=== PATIENT | male | born 1945 | race Caucasian/White ===

== ENCOUNTER 2017-04-17 09:52 | Emergency (ER) | payer MEDICARE ==
[2017-04-17 09:52] VITALS: BMI 23.6
[2017-04-17 10:02] VITALS: RESP 16; O2SAT 100
[2017-04-17 10:39] LABS: URINE BILIRUBIN NEGATIVE (NEGATIVE); URINE BLOOD NEGATIVE (NEGATIVE); URINE COLOR Straw (YELLOW); URINE GLUCOSE (UA) NORMAL (Normal); URINE KETONE NEGATIVE (NEGATIVE); URINE LEUKOCYTE ESTERASE NEG Leu/uL (Negative); URINE PROTEIN NEGATIVE (NEGATIVE); URINE UROBILINOGEN NORMAL mg/dL (0.2-1.0); WBC URINE < 1 /hpf (0-5)
[2017-04-17] MEDS ORDERED: Iohexol 240 (50 ml) PO STA (11:26)
[2017-04-17] MEDS ORDERED: Sodium Chloride 0.9% 1,000 ML IV ONE (11:26)
[2017-04-17 12:04] LABS: BASO % 0.7 % (0.0-2.0); EOS # 0.2 K/uL (0.0-0.7); EOS % 2.6 % (0.0-4.0); LYMPH # 1.7 K/uL (1.0-4.3); LYMPH % 26.4 % (20.0-40.0); MEAN CELL VOLUME 90.1 fL (80.0-94.0); MEAN CORPUSCULAR HEMOGLOBIN 30.1 pg (27.0-31.0); MEAN CORPUSCULAR HGB CONC 33.4 g/dL (33.0-37.0); MEAN PLATELET VOLUME 12.6 fL (7.2-11.7); MONO # 0.4 K/uL (0.0-0.8); MONO % 6.3 % (0.0-10.0); NRBC % 0.1 % (0.0-2.0); RED CELL DISTRIBUTION WIDTH 13.1 % (11.5-14.5); WHITE BLOOD COUNT 6.6 K/uL (4.8-10.8)
[2017-04-17] MEDS ORDERED: Iohexol 240 (50 ml) ONE (12:05)
[2017-04-17 12:15] LABS: CHLORIDE 101 mmol/L (98-107); POTASSIUM 4.5 mmol/L (3.6-5.2); SODIUM 138 mmol/L (132-148)
[2017-04-17 12:18] LABS: ALB/GLOB RATIO 1.1 (1.0-2.1); ALKALINE PHOSPHATASE 73 U/L (38-126); ALT/SGPT 51 U/L (21-72); AST/SGOT 29 U/L (17-59); BILIRUBIN,TOTAL 0.6 mg/dL (0.2-1.3); BLOOD UREA NITROGEN 13 mg/dL (9-20); CALCIUM 9.5 mg/dl (8.6-10.4); CARBON DIOXIDE 29 mmol/L (22-30); GFR AFRICAN-AMERICAN > 60; GLUCOSE,RANDOM 84 mg/dL (75-110); TOTAL PROTEIN 8.1 g/dL (6.3-8.3)
--- NOTE | 2017-04-17 12:40 | C.PDOC ---
History Of Present Illness Patient is a 71 y/o male who presents to the ED with a complaint of abdominal pain associated with diarrhea for the last 10 days. Patient denies vomiting or fever. Patient was seen by PMD and GI; GI prescribed medication, which the patient did not fill, and instructed the patient to schedule an endoscope. (-)hematochezia Time Seen by Provider: 04/17/17 10:50 Chief Complaint (Nursing): Abdominal Pain History Per: Patient History/Exam Limitations: no limitations Onset/Duration Of Symptoms: Days (symptoms present for the last 10 days. ) Current Symptoms Are (Timing): Still Present Location Of Pain/Discomfort: Diffuse Associated Symptoms: Diarrhea. denies: Fever, Vomiting Recent travel outside of the [place]: No Additional History Per: Patient Past Medical History Reviewed: Historical Data, Nursing Documentation, Vital Signs Vital Signs: Last Vital Signs Temp 97.4 F L 04/17/17 15:34 Pulse 68 04/17/17 15:34 Resp 16 04/17/17 15:34 BP 115/69 04/17/17 15:34 Pulse Ox 100 04/17/17 15:40 - Medical History PMH: Depression, Gastritis, Gall Bladder Disease, HTN, Hyperlipidemia, Osteoporosis Denies: Chronic Kidney Disease Surgical History: Cholecystectomy, Endoscopy - [facility] Procedures ANESTH INJEC PERIPH NERV (11/23/13) DESTRUC-SHOULDER LES NEC (11/23/13) ENDO RECTUM POLYPECTOMY (10/25/14) EXCISION INTERVERT DISC (01/17/13) FUSION/REFUS OF 2-3 VERTEBRAE (01/17/13) INSERTION OF INTERBODY SPINAL FUSION DEVICE (01/17/13) OTH CERVICAL FUSION OF ANTERIOR COLUMN, ANTERIOR TECHNIQUE (01/17/13) ROTATOR CUFF REPAIR (11/23/13) Family History: States: No Known Family Hx - Social History Hx Alcohol Use: No Hx Substance Use: No - Immunization History Hx Tetanus Toxoid Vaccination: No Hx Influenza Vaccination: Yes Hx Pneumococcal Vaccination: No Review Of Systems Constitutional: Negative for: Fever Gastrointestinal: Positive for: Abdominal Pain (x10 days), Diarrhea. Negative for: Vomiting Physical Exam - Physical Exam Appears: Well, Non-toxic, No Acute Distress Skin: Normal Color, Warm, Dry Head: Atraumatic, Normacephalic Eye(s): bilateral: Normal Inspection, EOMI Nose: Normal Oral Mucosa: Moist Neck: Normal ROM, Supple Chest: Symmetrical Cardiovascular: Rhythm Regular, No Murmur Respiratory: Normal Breath Sounds, No Accessory Muscle Use, Other (speaking in full sentences) Gastrointestinal/Abdominal: Soft, Tenderness (R sided tenderness) Back: No CVA Tenderness, No Vertebral Tenderness Neurological/Psych: Oriented x3, Normal Speech, Other (no focal deficits) ED Course And Treatment - Laboratory Results Result Diagrams: 04/17/17 11:57 04/17/17 11:57 O2 Sat by Pulse Oximetry: 100 - CT Scan/US Abd/Pelvis Other Rad Studies (CT/US): Interpreted By Me, Read By Radiologist CT/US Interpretation: IMPRESSION: No acute intra abdominal pathology. Status post cholecystectomy. Mild fatty hepatic infiltration. Enlarged prostate gland with prostatic calcifications. Findings likely due to BPH however correlation with PSA recommended to exclude the possibility of prostatic carcinoma. Progress Note: Plan: Omnipaque, Toradol, and IV fluids administered. Abd/Pelvis CT ordered. On re-evaluation, abdominal pain has resolved. Abdomen soft, non tender. Tolerating PO. Discussed with pt results of CT. Pt notes he has a h/o of enlarged prostate. Copy of CT given and instructed strict follow up with urology and GI. Instructed to return to ER if symptoms persist or worsen. Glass Processing Worker used to ensure understanding. Disposition - Disposition Disposition: HOME/ ROUTINE Disposition Time: 15:33 Condition: STABLE Additional Instructions: FOllow up with your GI docotor. REturn to ER if symptoms persist or worsen. Instructions: Acute Abdominal Pain (ED) Forms: [facility] (Syriac) Print Language: SENEGALESE - Clinical Impression Clinical Impression: Abdominal pain - Scribe Statement The provider has reviewed the documentation as recorded by the Scriburban Mendoza All medical record entries made by the Inocencioiburban were at my direction and personally dictated by me. I have reviewed the chart and agree that the record accurately reflects my personal performance of the history, physical exam, medical decision making, and the department course for this patient. I have also personally directed, reviewed, and agree with the discharge instructions and disposition.
[2017-04-17] MEDS ORDERED: Iodixanol 320 MG/ML 100 ML BOTTLE IV ONE (14:06)
--- NOTE | 2017-04-17 15:23 | CT ---
PROCEDURE: CT Abdomen and Pelvis with Oral contrast. HISTORY: abd pain COMPARISON: No prior studies available comparison. TECHNIQUE: Contiguous axial images of the abdomen pelvis performed following oral and intravenous injection of approximately 100 cc Visipaque 320 contrast material. . Coronal and Sagittal reformats generated. This CT exam was performed using one or more of the following dose reduction techniques: Automated exposure control, adjustment of the mA and/or kV according to patient size, and/or use of iterative reconstruction technique. Total exam DLP = 356.27 mGy-cm. FINDINGS: LOWER THORAX: Lung bases clear. No infiltrate effusion or basilar pneumothorax. Small hiatal hernia with slight wall thickening of the distal esophagus likely due to protrusion gastric mucosa. Esophagitis or other intrinsic - invasive wall lesion cannot be excluded. Heart size is borderline/mildly enlarged. No significant pericardial effusion. LIVER: Liver exhibits normal size measuring approximately 11 cm in CC dimension. Mild diffuse fatty hepatic infiltration. No obvious hepatic mass or collection. Portal and splenic veins are opacified. GALLBLADDER AND BILE DUCTS: Gallbladder has been surgically removed with metallic clips in the gallbladder fossa. PANCREAS: Unremarkable. No mass. No ductal dilatation. SPLEEN: Unremarkable. No splenomegaly. ADRENALS: No adrenal lesions. KIDNEYS AND URETERS: Kidneys demonstrate symmetric nephrograms. No evidence of nephrolithiasis or hydronephrosis. BLADDER: Urinary bladder incompletely distended which may account for slight thick-walled appearance. Muscular hypertrophy may contribute. Rule out cystitis. . REPRODUCTIVE: The the prostate appears mildly enlarged with prostatic calcifications. Findings likely due to BPH however correlation with PSA recommended to exclude prostate carcinoma. APPENDIX: Normal-appearing appendix. BOWEL: Evaluation of the bowel slightly limited due to incomplete opacification. Stomach is distended with liquid contrast material and air. Visualized loops of small bowel exhibit relatively normal contour and caliber. No evidence of acute mechanical small bowel obstruction with oral contrast material extending into the colon to the level of the and rectosigmoid. There may be a few scattered colonic diverticula along the sigmoid colon however no evidence to suggest acute diverticulitis. No definitive evidence of abnormal mural wall thickening. PERITONEUM: Unremarkable. No fluid collection. No free air. LYMPH NODES: Unremarkable. No enlarged lymph nodes. VASCULATURE: Unremarkable. No aortic aneurysm. BONES: Mild multilevel degenerative spondylosis of the lower thoracic and lumbar spine. There are no acute compression fractures no retropulsed fragments. OTHER FINDINGS: None. IMPRESSION: No acute intra abdominal pathology. Status post cholecystectomy. Mild fatty hepatic infiltration. Enlarged prostate gland with prostatic calcifications. Findings likely due to BPH however correlation with PSA recommended to exclude the possibility of prostatic carcinoma. See above discussion for additional details and findings.
[2017-04-17 15:35] VITALS: BP 115/69; PULSE 68; TEMP 97.4
== END 2017-04-17 15:51 | disposition home or self-care (01) ==
LOC: C.ER 09:52
DX: R10.9 Unspecified abdominal pain (principal); E78.5 Hyperlipidemia, unspecified; I10 Essential (primary) hypertension; M81.0 Age-related osteoporosis without current pathological fracture; Z90.49 Acquired absence of other specified parts of digestive tract
CPT/HCPCS: 74177; 80053; 81001; 83690; 85025; 96361; 96374; 99284; J1885; J7040; Q9966; Q9967

== ENCOUNTER 2017-06-10 19:01 | Emergency (ER) | payer MEDICARE ==
[2017-06-10 19:01] VITALS: BMI 23.6
[2017-06-10] MEDS ORDERED: Sodium Chloride 0.9% 500 ML IV ONE (20:09)
--- NOTE | 2017-06-10 20:25 | C.PDOC ---
History Of Present Illness 72 year old male with Hx of HLD presents to the ED c/o abdominal pain along with vomit and diarrhea for 3 days. Patient reports he has not been able to tolerate PO as well. Patient denies fever, chills, back pain, dysuria, hematuria. Time Seen by Provider: 06/10/17 20:04 Chief Complaint (Nursing): Abdominal Pain History Per: Patient History/Exam Limitations: no limitations Onset/Duration Of Symptoms: Days Current Symptoms Are (Timing): Still Present Location Of Pain/Discomfort: Diffuse Radiation Of Pain To:: None Quality Of Discomfort: "Pain" Associated Symptoms: Vomiting, Diarrhea, Loss Of Appetite Recent travel outside of the [place]: No Additional History Per: Patient Past Medical History Reviewed: Historical Data, Nursing Documentation, Vital Signs Vital Signs: Last Vital Signs Temp 98.2 F 06/10/17 22:55 Pulse 67 06/10/17 22:55 Resp 16 06/10/17 22:55 BP 150/86 06/10/17 22:55 Pulse Ox 96 06/10/17 22:55 - Medical History PMH: Arthritis, Depression, Gastritis, Gall Bladder Disease, HTN, Hypercholesterolemia, Hyperlipidemia, Osteoporosis Denies: Chronic Kidney Disease Surgical History: Cholecystectomy, Endoscopy - [facility] Procedures ANESTH INJEC PERIPH NERV (11/23/13) DESTRUC-SHOULDER LES NEC (11/23/13) ENDO RECTUM POLYPECTOMY (10/25/14) EXCISION INTERVERT DISC (01/17/13) FUSION/REFUS OF 2-3 VERTEBRAE (01/17/13) INSERTION OF INTERBODY SPINAL FUSION DEVICE (01/17/13) OTH CERVICAL FUSION OF ANTERIOR COLUMN, ANTERIOR TECHNIQUE (01/17/13) ROTATOR CUFF REPAIR (11/23/13) Family History: States: Unknown Family Hx - Social History Hx Alcohol Use: Yes Hx Substance Use: No - Immunization History Hx Tetanus Toxoid Vaccination: No Hx Influenza Vaccination: Yes Hx Pneumococcal Vaccination: No Review Of Systems Constitutional: Negative for: Fever, Chills Cardiovascular: Negative for: Chest Pain, Palpitations Respiratory: Negative for: Cough, Shortness of Breath Gastrointestinal: Positive for: Vomiting, Abdominal Pain, Diarrhea. Negative for: Nausea Skin: Negative for: Rash Neurological: Negative for: Weakness, Numbness Physical Exam - Physical Exam Appears: Non-toxic, No Acute Distress Skin: Normal Color, Warm, Dry Head: Atraumatic, Normacephalic Nose: No Discharge Oral Mucosa: Moist Neck: Normal ROM, Supple Chest: Symmetrical Cardiovascular: Rhythm Regular, No Murmur Respiratory: Normal Breath Sounds, No Rales, No Rhonchi, No Wheezing Gastrointestinal/Abdominal: Bowel Sounds (decreased), Soft, Tenderness (diffuse) , Distention, No Hernia Extremity: Normal ROM, No Pedal Edema, No Calf Tenderness, No Swelling Neurological/Psych: Oriented x3, Normal Speech, Normal Cognition Gait: Steady ED Course And Treatment - Laboratory Results Result Diagrams: 06/10/17 20:45 06/10/17 20:45 O2 Sat by Pulse Oximetry: 98 (On RA) Pulse Ox Interpretation: Normal Progress Note: abdomen is soft and nontender. Patient feels better. CT report is nonspecific. Medical Decision Making Medical Decision Making: Impression : abdominal pain , vomit, diarrhea Plan: * Blood work * Iv fluids * Obstructive series X-Ray Disposition - Disposition Disposition: HOME/ ROUTINE Disposition Time: 00:40 Condition: STABLE Forms: [facility] (Frisian), Gen Discharge Inst Somali - Clinical Impression Clinical Impression: Abdominal pain, Abdominal colic, Abdominal bloating, Abdominal distension - Scribe Statement The provider has reviewed the documentation as recorded by the Scribe Kennedy Muir All medical record entries made by the Scribe were at my direction and personally dictated by me. I have reviewed the chart and agree that the record accurately reflects my personal performance of the history, physical exam, medical decision making, and the department course for this patient. I have also personally directed, reviewed, and agree with the discharge instructions and disposition.
[2017-06-10 20:55] LABS: BASO % 0.6 % (0.0-2.0); EOS % 0.3 % (0.0-4.0); HEMATOCRIT 44.3 % (35.0-51.0); LYMPH # 1.8 K/uL (1.0-4.3); LYMPH % 20.9 % (20.0-40.0); MEAN CELL VOLUME 89.1 fL (80.0-94.0); MEAN CORPUSCULAR HEMOGLOBIN 29.9 pg (27.0-31.0); MEAN CORPUSCULAR HGB CONC 33.6 g/dL (33.0-37.0); MEAN PLATELET VOLUME 11.9 fL (7.2-11.7); MONO # 0.6 K/uL (0.0-0.8); MONO % 6.9 % (0.0-10.0); RED CELL DISTRIBUTION WIDTH 14.3 % (11.5-14.5); WHITE BLOOD COUNT 8.4 K/uL (4.8-10.8)
[2017-06-10 21:04] LABS: ALB/GLOB RATIO 1.5 (1.0-2.1); ALKALINE PHOSPHATASE 72 U/L (38-126); ALT/SGPT 62 U/L (21-72); AMYLASE 133 U/L (30-110); AST/SGOT 50 U/L (17-59); BILIRUBIN,TOTAL 1.7 mg/dL (0.2-1.3); BLOOD UREA NITROGEN 12 mg/dL (9-20); CALCIUM 8.6 mg/dl (8.6-10.4); CARBON DIOXIDE 30 mmol/L (22-30); CHLORIDE 100 mmol/L (98-107); GFR AFRICAN-AMERICAN > 60; GLUCOSE,RANDOM 114 mg/dL (75-110); POTASSIUM 4.7 mmol/L (3.6-5.2); SODIUM 136 mmol/L (132-148); TOTAL PROTEIN 6.7 g/dL (6.3-8.3)
[2017-06-10] MEDS ORDERED: Iohexol 240 (50 ml) ONE (21:59)
[2017-06-10] MEDS ORDERED: Iohexol 240 (50 ml) PO ONE (22:10)
[2017-06-10] MEDS ORDERED: Iohexol 300 100 ML IJ ONE (22:33)
--- NOTE | 2017-06-11 00:25 | CT ---
EXAM: CT Abdomen and Pelvis With Intravenous Contrast EXAM DATE/TIME: 06/10/2017 9:41 PM CLINICAL HISTORY: 72 years old, male; Pain; Abdominal pain; Patient HX: 10--; Additional info: Epigastric pain TECHNIQUE: Axial computed tomography images of the abdomen and pelvis with intravenous contrast. All CT scans at this facility use one or more dose reduction techniques, viz.: automated exposure control; ma/kV adjustment per patient size (including targeted exams where dose is matched to indication; i.e. head); or iterative reconstruction technique. Coronal and sagittal reformatted images were created and reviewed. CONTRAST: 100 mL of [id number] administered intravenously. COMPARISON: Prior images are not available for review. FINDINGS: Lower thorax: Heart size is normal. There is dense contrast in a collateral vessel adjacent to the heart on the left suggesting persistent left superior vena cava. There is a hiatal hernia. There are bilateral pleural effusions. There is prominence of interstitial markings bilaterally. There are groundglass opacities at the lung bases. ABDOMEN: Liver: There is fatty infiltration of the liver. Gallbladder and bile ducts: Gallbladder is absent.Common duct is unremarkable. Pancreas: Pancreas is mildly atrophic. Spleen: unremarkable Adrenals: unremarkable Kidneys and ureters: unremarkable Stomach and bowel: Stomach is incompletely distended. Rotation is normal. There is no small bowel obstruction. Ileocecal unremarkable. Appendix and terminal ileum are unremarkable. Colon is incompletely distended which limits evaluation.There is diverticulosis. Appendix: See stomach and bowel PELVIS: Bladder: unremarkable Reproductive: Prostate is mildly enlarged.Seminal vesicles have the expected configuration. ABDOMEN and PELVIS: Intraperitoneal space: There is trace free fluid in the pelvis. There is no free air. Bones/joints: There are degenerative changes in the osseus structures. Soft tissues: There is a small fat containing umbilical hernia. Vasculature: There are vascular calcifications. Lymph nodes: There is no pathologic adenopathy. IMPRESSION: Bilateral pleural effusion with bibasilar groundglass opacity atelectasis and/or infiltrate; prior cholecystectomy no ductal dilatation; no acute solid visceral abnormality; no CT findings of appendicitis or diverticulitis; trace fluid in the pelvis, unknown etiology Additional findings as described above.
[2017-06-11 00:40] VITALS: BP 138/77; PULSE 68; RESP 18; TEMP 97.6; O2SAT 95
--- NOTE | 2017-06-11 10:25 | RAD ---
PROCEDURE: Radiographs of the chest and abdomen (obstructive series) HISTORY: Abd Pain COMPARISON: No prior. TECHNIQUE: AP radiograph of the chest, with upright and supine radiographs of the abdomen. FINDINGS: CHEST: Lungs: There are chronic fibrotic changes in both lower lobes. There is atelectasis/ scarring in the right mid lung. . Cardiovascular: Normal size heart. No pulmonary vascular congestion. Pleura: No pleural fluid. No pneumothorax. Other findings: None. ABDOMEN AND PELVIS: Bowel: Bowel gas pattern is nonspecific. No evidence of mechanical obstruction. There is a tablet in the distal descending colon. Free air: None. Bones: Unremarkable. Other findings: Surgical clips in the right upper quadrant are related to prior cholecystectomy.. IMPRESSION: Non obstructive bowel gas pattern. Fibrotic changes in both lower lobes of the lungs.
== END 2017-06-11 01:07 | disposition home or self-care (01) ==
LOC: C.ER 19:01
DX: R14.0 Abdominal distension (gaseous) (principal); R10.13 Epigastric pain; E78.00 Pure hypercholesterolemia, unspecified; I10 Essential (primary) hypertension
CPT/HCPCS: 74022; 74177; 80053; 82150; 83605; 83690; 85025; 96372; 99284; J0500; J7040; Q9966; Q9967

== ENCOUNTER 2017-12-03 17:22 | Emergency (ER) | payer MEDICARE, OTHER ==
[2017-12-03 17:22] VITALS: BMI 23.6
[2017-12-03] MEDS ORDERED: Sodium Chloride 0.9% 1,000 ML IV ONE (17:53)
[2017-12-03 18:04] LABS: BASO # 0.1 K/uL (0.0-0.2); BASO % 1.1 % (0.0-2.0); EOS # 0.2 K/uL (0.0-0.7); EOS % 2.2 % (0.0-4.0); HEMOGLOBIN 15.5 g/dL (12.0-18.0); LYMPH # 2.1 K/uL (1.0-4.3); LYMPH % 25.8 % (20.0-40.0); MEAN CELL VOLUME 91.4 fL (80.0-94.0); MEAN CORPUSCULAR HGB CONC 33.9 g/dL (33.0-37.0); MEAN PLATELET VOLUME 10.6 fL (7.2-11.7); MONO # 0.6 K/uL (0.0-0.8); MONO % 7.3 % (0.0-10.0); NEUT # 5.1 K/uL (1.8-7.0); NEUT % 63.6 % (50.0-75.0); NRBC % 0.1 % (0.0-2.0); RBC 5.02 Mil/uL (4.40-5.90); RED CELL DISTRIBUTION WIDTH 14.5 % (11.5-14.5); WHITE BLOOD COUNT 8.1 K/uL (4.8-10.8)
[2017-12-03 18:17] LABS: URINE BILIRUBIN NEGATIVE (NEGATIVE); URINE BLOOD NEGATIVE (NEGATIVE); URINE CLARITY Clear (Clear); URINE COLOR Yellow (YELLOW); URINE GLUCOSE (UA) NORMAL (Normal); URINE LEUKOCYTE ESTERASE NEG Leu/uL (Negative); URINE PROTEIN NEGATIVE (NEGATIVE); URINE UROBILINOGEN NORMAL mg/dL (0.2-1.0)
[2017-12-03 18:20] LABS: ALB/GLOB RATIO 1.3 (1.0-2.1); ALBUMIN 4.1 g/dL (3.5-5.0); ALT/SGPT 24 U/L (21-72); AST/SGOT 33 U/L (17-59); BLOOD UREA NITROGEN 16 mg/dL (9-20); GFR AFRICAN-AMERICAN > 60; GFR NON-AFRICAN AMERICAN > 60; LIPASE 120 U/L (23-300)
[2017-12-03] MEDS ORDERED: Iodixanol 320 MG/ML 100 ML BOTTLE IV ONE (19:14)
--- NOTE | 2017-12-03 20:40 | C.PDOC ---
History Of Present Illness 72 year old male presents to the ED for evaluation of diffuse abdominal pain which began 2 weeks ago. Patient reports decreased appetite, but has been tolerating PO intake. He denies fever, chills, nausea, vomiting, blood in urine/ stool, or dysuria. Chief Complaint (Nursing): Abdominal Pain History Per: Patient History/Exam Limitations: no limitations Onset/Duration Of Symptoms: Other (2 weeks ) Current Symptoms Are (Timing): Still Present Location Of Pain/Discomfort: Diffuse Quality Of Discomfort: "Pain" Associated Symptoms: denies: Fever, Chills, Nausea, Vomiting, Urinary Symptoms Additional History Per: Patient Past Medical History Reviewed: Historical Data, Nursing Documentation, Vital Signs Vital Signs: Last Vital Signs Temp 98.0 F 12/03/17 22:50 Pulse 77 12/03/17 22:50 Resp 18 12/03/17 22:50 BP 156/89 H 12/03/17 22:50 Pulse Ox 97 12/03/17 22:50 - Medical History PMH: Arthritis, Depression, Gastritis, Gall Bladder Disease, HTN, Hypercholesterolemia, Hyperlipidemia, Osteoporosis Denies: Chronic Kidney Disease Surgical History: Cholecystectomy, Endoscopy - [facility] Procedures ANESTH INJEC PERIPH NERV (11/23/13) DESTRUC-SHOULDER LES NEC (11/23/13) ENDO RECTUM POLYPECTOMY (10/25/14) EXCISION INTERVERT DISC (01/17/13) FUSION/REFUS OF 2-3 VERTEBRAE (01/17/13) INSERTION OF INTERBODY SPINAL FUSION DEVICE (01/17/13) OTH CERVICAL FUSION OF ANTERIOR COLUMN, ANTERIOR TECHNIQUE (01/17/13) ROTATOR CUFF REPAIR (11/23/13) Family History: States: Unknown Family Hx - Social History Hx Alcohol Use: Yes Hx Substance Use: No - Immunization History Hx Tetanus Toxoid Vaccination: No Hx Influenza Vaccination: Yes Hx Pneumococcal Vaccination: No Review Of Systems Constitutional: Negative for: Fever, Chills Gastrointestinal: Positive for: Abdominal Pain (diffuse ). Negative for: Nausea , Vomiting Genitourinary: Negative for: Dysuria, Hematuria Physical Exam - Physical Exam Appears: Non-toxic, No Acute Distress Skin: Normal Color, Warm, Dry Head: Atraumatic, Normacephalic Eye(s): bilateral: Normal Inspection Oral Mucosa: Moist Neck: Supple Chest: Symmetrical, No Deformity, No Tenderness Cardiovascular: Rhythm Regular, No Murmur Respiratory: Normal Breath Sounds, No Rales, No Rhonchi, No Wheezing Gastrointestinal/Abdominal: Bowel Sounds, Soft, Tenderness (diffuse ), No Guarding, No Rebound Extremity: Normal ROM, Capillary Refill (less than 2 seconds ) Neurological/Psych: Oriented x3, Normal Speech, Normal Cognition ED Course And Treatment - Laboratory Results Result Diagrams: 12/03/17 18:01 12/03/17 18:01 O2 Sat by Pulse Oximetry: 97 (on RA) Pulse Ox Interpretation: Normal Medical Decision Making Medical Decision Making: Progress: Bloodwork, urinalysis, CT A/P ordered and reviewed. IV Fluids administered. Disposition - Disposition Referrals: [facility] Annette Resendiz, [Non-Staff] - Disposition: HOME/ ROUTINE Disposition Time: 21:30 Condition: GOOD Additional Instructions: ELIZABETH GUNTER, thank you for letting us take care of you today. Your provider was Jordy Hunt DO and you were treated for ABD PAIN. The emergency medical care you received today was directed at your acute symptoms. If you were prescribed any medication, please fill it and take as directed. It may take several days for your symptoms to resolve. Return to the Emergency Department if your symptoms worsen, do not improve, or if you have any other problems. Please contact your doctor or call one of the physicians/clinics you have been referred to that are listed on the Patient Visit Information form that is included in your discharge packet. Bring any paperwork you were given at discharge with you along with any medications you are taking to your follow up visit. Our treatment cannot replace ongoing medical care by a primary care provider outside of the emergency department. Thank you for allowing the [facility] team to be part of your care today. Follow up with your primary doctor in 2-3 days for re-evaluation and further management. ELIZABETH GUNTER, skyler por dejarnos atenderlo hoy. Marquez proveedor fue Jordy Hunt DO y usted fue tratado por ABD PAIN. La atencin mdica de emergencia que recibi hoy estaba dirigida a day sntomas agudos. Si le prescribieron alg n medicamento, llnelo y tome segn las indicaciones. Day sntomas pueden tardar varios verduzco en resolverse. Regrese al Departamento de Emergencia si day s ntomas empeoran, no mejoran o si tiene algn otro problema. Comunquese con marquez mdico o llame a alex de los mdicos / clnicas a los que angel sido referido que figura en el formulario de Informacin de visita del paciente que se incluye en marquez paquete de gregoria. Traiga todos los documentos que recibi al momento del gregoria junto con los medicamentos que est tomando en marquez visita de seguimiento. Nuestro tratamiento no puede reemplazar la atencin mdica en curso por un proveedor de atencin primaria fuera del departamento de emergencia. Skyler por permitir que el equipo de [facility] sea parte de marquez cuidado hoy. Carola un seguimiento con marquez mdico de cabecera en 2-3 verduzco para catherine nueva evaluacin y catherine administracin posterior. Instructions: Acute Abdomen (Belly Pain), Adult (DC) Forms: Gen Discharge Inst Pashto, [employer] (Pashto) Print Language: KYRGYZ - Clinical Impression Clinical Impression: Abdominal pain - Scribe Statement The provider has reviewed the documentation as recorded by the Scribe (Kit Mccoy) Provider Attestation: All medical record entries made by the Scribe were at my direction and personally dictated by me. I have reviewed the chart and agree that the record accurately reflects my personal performance of the history, physical exam, medical decision making, and the department course for this patient. I have also personally directed, reviewed, and agree with the discharge instructions and disposition.
--- NOTE | 2017-12-03 22:06 | CT ---
EXAM: CT Abdomen and Pelvis With Intravenous Contrast CLINICAL HISTORY: 72 years old, male; Pain; Abdominal pain; Generalized; Additional info: Diffuse abdominal pain TECHNIQUE: Axial computed tomography images of the abdomen and pelvis with intravenous contrast. All CT scans at this facility use one or more dose reduction techniques, viz.: automated exposure control; ma/kV adjustment per patient size (including targeted exams where dose is matched to indication; i.e. head); or iterative reconstruction technique. Coronal and sagittal reformatted images were created and reviewed. CONTRAST: 100 mL of visipaque 320 administered intravenously. COMPARISON: CT - ABD PELVIS PO IV CONTRAST 2017-04-17 14:14 FINDINGS: Lung bases: Mild atelectasis/scarring. ABDOMEN: Liver: Fatty infiltration. Gallbladder and bile ducts: Cholecystectomy. No significant ductal dilation. Pancreas: No ductal dilation. No mass. Spleen: No splenomegaly. Adrenals: No mass. Kidneys and ureters: Few too small to characterize lesions within kidneys. No hydronephrosis. Stomach and bowel: No definite mural thickening. No obstruction. PELVIS: Appendix: Normal caliber. No inflammation. Bladder: Unremarkable. Reproductive: Mildly enlarged prostate. Penile calcifications, grossly stable. ABDOMEN and PELVIS: Intraperitoneal space: No significant fluid collection. No free air. Bones/joints: Degenerative changes of spine. No acute fracture. Soft tissues: Minimal gynecomastia. Vasculature: Mild atherosclerotic disease. No aneurysm. Lymph nodes: No pathologically enlarged lymph nodes. IMPRESSION: 1. No definite acute intraabdominal abnormality. 2. Prostate enlargement. Followup as clinically warranted. 3. Incidental/non-acute findings are described above.
[2017-12-03 22:51] VITALS: BP 156/89; PULSE 77; RESP 18; TEMP 98; O2SAT 97
== END 2017-12-03 22:55 | disposition home or self-care (01) ==
LOC: C.ER 17:22
DX: R10.9 Unspecified abdominal pain (principal); I10 Essential (primary) hypertension; E78.00 Pure hypercholesterolemia, unspecified
CPT/HCPCS: 74177; 80053; 81001; 83690; 85025; 87086; 99285; J7030; Q9967

== ENCOUNTER 2018-01-13 06:42 | Day surgery (SDC) | payer MEDICARE ==
[2018-01-13] MEDS ORDERED: Propofol 10 mg/ml Inj (20 ML) ONE (08:05)
--- NOTE | 2018-01-13 08:08 | CP.SDSHP ---
Same Day Surgery H & P - History Proposed Procedure: endoscopy Pre-Op Diagnosis: abdom pain, ulcer - Previous Medical/Surgical History Cardiac: Hypertension - Allergies Allergies: Allergies No Known Allergies Allergy (Verified 01/13/18 07:01) - Physical Exam Vital Signs: Vital Signs 01/13/18 06:55 Temperature 97.7 F Pulse Rate 63 Respiratory 19 Rate Blood Pressure 122/71 O2 Sat by Pulse 97 Oximetry Mental Status: Alert & Oriented x3 Neuro: WNL Heart: WNL Lungs: WNL GI: WNL - {Optional Preform as Required} Abdomen: WNL - Impression Impression: abdom pain, ulcer Pt. Evaluated Today:Candidate for Anesthesia & Procedure: Yes - Date & Time Date: 01/13/18 Time: 08:00 Short Stay Discharge - Short Stay Discharge Admitting Diagnosis/Reason for Visit: GASTRIC ULCER Disposition: HOME/ ROUTINE
[2018-01-13 08:28] VITALS: TEMP 97.9
[2018-01-13 08:41] VITALS: O2SAT 100
[2018-01-13 09:02] VITALS: BP 123/70; PULSE 60; RESP 16
== END 2018-01-13 09:10 | disposition home or self-care (01) ==
LOC: C.ENDO 06:42
PROVIDERS: ATTEND Internal Medicine Gastroenterology
DX: K25.9 Gastric ulcer, unspecified as acute or chronic, without hemorrhage or perforation (principal); K29.70 Gastritis, unspecified, without bleeding
CPT/HCPCS: 43239; 88305; 88312; 88342; J2704

== ENCOUNTER 2018-09-02 08:41 | Inpatient (IN) | payer MEDICARE, OTHER ==
[2018-09-02 08:41] VITALS: BMI 25.0
--- NOTE | 2018-09-02 08:59 | C.PDOC ---
History Of Present Illness 73 y/o male pt with hx of arthritis, HTN and HLD presents to the ER c/o periumbilical abdominal pain that started last night. Associated sx includes dysuria. Pain feels like a throbbing, stabbing pain with no radiation. Pt denies back pain, dark or blood stool, diarrhea, constipation, nausea or vomiting. No fever, chills or night sweats. No fall or trauma. No new medications. Pt has no other associated sx or complaints at this time. Time Seen by Provider: 09/02/18 08:58 Chief Complaint (Nursing): Abdominal Pain History Per: Patient History/Exam Limitations: no limitations Onset/Duration Of Symptoms: Days (x1) Current Symptoms Are (Timing): Still Present Location Of Pain/Discomfort: Periumbilical Past Medical History Reviewed: Historical Data, Nursing Documentation, Vital Signs Vital Signs: Last Vital Signs Temp 97.9 F 09/02/18 08:46 Pulse 86 09/02/18 08:46 Resp 18 09/02/18 08:46 BP 102/68 09/02/18 08:46 Pulse Ox 99 09/02/18 08:46 - Medical History PMH: Arthritis, Depression, Gastritis, Gall Bladder Disease, HTN, Hypercholesterolemia, Hyperlipidemia, Osteoporosis Surgical History: Cholecystectomy, Endoscopy - [facility] Procedures ANESTH INJEC PERIPH NERV (11/23/13) DESTRUC-SHOULDER LES NEC (11/23/13) ENDO RECTUM POLYPECTOMY (10/25/14) EXCISION INTERVERT DISC (01/17/13) FUSION/REFUS OF 2-3 VERTEBRAE (01/17/13) INSERTION OF INTERBODY SPINAL FUSION DEVICE (01/17/13) OTH CERVICAL FUSION OF ANTERIOR COLUMN, ANTERIOR TECHNIQUE (01/17/13) ROTATOR CUFF REPAIR (11/23/13) Family History: States: Unknown Family Hx - Social History Hx Alcohol Use: Yes Hx Substance Use: No - Immunization History Hx Tetanus Toxoid Vaccination: No Hx Influenza Vaccination: Yes Hx Pneumococcal Vaccination: No Review Of Systems Constitutional: Negative for: Fever, Chills, Sweats Eyes: Negative for: Pain, Vision Change, Conjunctivae Inflammation ENT: Negative for: Ear Pain, Ear Discharge, Nose Pain, Nose Congestion, Mouth Pain, Mouth Swelling Cardiovascular: Negative for: Chest Pain, Palpitations, Orthopnea Respiratory: Negative for: Cough, Shortness of Breath Gastrointestinal: Positive for: Abdominal Pain (periumbilical ). Negative for: Nausea, Vomiting, Diarrhea, Melena, Hematochezia Genitourinary: Positive for: Dysuria. Negative for: Frequency, Incontinence Musculoskeletal: Negative for: Back Pain Skin: Negative for: Rash, Lesions Neurological: Negative for: Weakness, Numbness Physical Exam - Physical Exam Appears: Well, Non-toxic, No Acute Distress Skin: Warm, Dry Head: Atraumatic, Normacephalic Eye(s): bilateral: Normal Inspection, PERRL, EOMI Ear(s): Bilateral: Normal Nose: Normal Oral Mucosa: Moist Tongue: Normal Appearing Lips: Normal Appearing Gingiva: Normal Appearing Throat: Normal, No Erythema, No Exudate Neck: Normal, Normal ROM, Trachea Midline, Supple, No Other (meningeal signs; negative kernig's and brudzinski's ) Lymphatic: Normal Exam Chest: Symmetrical Cardiovascular: Rhythm Regular, No Friction Rub Respiratory: Normal Breath Sounds, No Decreased Breath Sounds, No Accessory Muscle Use, No Rales, No Rhonchi, No Stridor, No Wheezing, No Plerual Rub Gastrointestinal/Abdominal: Soft, Tenderness (mild periumbilical pain ), No Distention, No Guarding, No Rebound Back: Normal Inspection, No CVA Tenderness, No Vertebral Tenderness Extremity: Normal ROM, No Tenderness, No Swelling Extremity: Bilateral: Atraumatic, Normal Color And Temperature Pulses: Left Dorsalis Pedis: Normal, Right Dorsalis Pedis: Normal Neurological/Psych: Oriented x3, Normal Speech, Normal Cognition Gait: Steady ED Course And Treatment - Laboratory Results Result Diagrams: 09/02/18 10:01 09/02/18 10:01 O2 Sat by Pulse Oximetry: 99 (RA) Pulse Ox Interpretation: Normal - CT Scan/US Abdominal/Pelvic CT Other Rad Studies (CT/US): Interpreted By Me, Read By Radiologist CT/US Interpretation: Accession No. : [id number]. Patient Name / ID : JANI JOHNSON / [id number]. Exam Date : 09/02/2018 11:31:10 ( Approved ). Study Comment : Sex / Age : M / 73Y. Creator : Ely Anderson. Dictator : Jonas Gerber MD. Bead Preparer : Travel Guide : Jonas Gerber MD. Approver2 : Report Date : 09/02/2018 12:17:33. My Comment : . Date of service: 09/02/2018. PROCEDURE: CT Abdomen and Pelvis with contrast. HISTORY: abd pain. COMPARISON: 12/03/2017. TECHNIQUE: Contrast dose: 100 mL Visipaque 320. Radiation dose: Total exam DLP = 897.53 mGy-cm. This CT exam was performed using one or more of the following dose reduction techniques: Automated exposure control, adjustment of the mA and/or kV according to patient size, and/or use of iterative reconstruction technique. FINDINGS: LOWER THORAX: Very small hiatal hernia. LIVER: Unremarkable. No gross lesion or ductal dilatation. GALLBLADDER AND BILE DUCTS: Status post cholecystectomy. PANCREAS: Unrem arkable. No gross lesion or ductal dilatation. SPLEEN: Unremarkable. ADRENALS: Unremarkable. No mass. KIDNEYS AND URETERS: Unremarkable. No hydronephrosis. No solid mass. VASCULATURE: Unremarkable. No aortic aneurysm. No aortic atherosclerotic calcification or mural plaque present. BOWEL: Multiple mildly dilated loops of small bowel, likely ileus. Cannot entirely rule out early mechanical small bowel obstruction. There is mild mural thickening of loops of jejunum in the central abdomen and left upper quadrant. Consistent with nonspecific enteritis.. APPENDIX: Distended fluid-filled appendix up to approximately 7 mm diameter. Concerning for acute appendicitis. No periappendiceal inflammatory change. No periappendiceal abscess. No free air. PERITONEUM: Unremarkable. No free fluid. No free air. LYMPH NODES: Unremarkable. No enlarged lymph nodes. BLADDER: Poorly distended. No gross abnormality. REPRODUCTIVE: Unremarkable prostate. BONES: No acute fracture. OTHER FINDINGS: None. IMPRESSION: Mildly distended appendix concerning for acute appendicitis. No periappendiceal abscess or free air. Probable mild ileus. Cannot rule out early mechanical small bowel obstruction and follow-up should be considered. Mild nonspecific enteritis. Medical Decision Making Medical Decision Making: Periumbilical pain r/o appendicitis. No dark or bloody stool. Pt notes dysuria. No CVAT or fever, chills or night sweats. No fall or trauma. Pending imaging nad labs to rule out appdx. plans: -- chem labs -- blood work -- EKG -- CT abdomen -- pepcid [address] 1333 imaging w/ possible Appendicits, pt in NAD w/ out leukocytosis paged surgery EK, sinus rhythm with a apc, no stemi. [id number] appreciate consult w/ surgical services asst: likely to be admitted to medicine team, no abx at this time appreciae consult w/ Dr. Gillis (pts pmd does not come to [facility]): accepted under his service. Pt in NAD agreeable to plan Disposition - Disposition Disposition: HOSPITALIZED Disposition Time: 14:44 Condition: GOOD Additional Instructions: ELIZABETH GUNTER, thank you for letting us take care of you today. Your provider was Isidoro Mota and you were treated for STOMACH PAIN. The emergency medical care you received today was directed at your acute symptoms. If you were prescribed any medication, please fill it and take as directed. It may take several days for your symptoms to resolve. Return to the Emergency Department if your symptoms worsen, do not improve, or if you have any other problems. Please contact your doctor or call one of the physicians/clinics you have been referred to that are listed on the Patient Visit Information form that is included in your discharge packet. Bring any paperwork you were given at discharge with you along with any medications you are taking to your follow up visit. Our treatment cannot replace ongoing medical care by a primary care provider outside of the emergency department. Thank you for allowing the [facility] team to be part of your care today. If you had an X-Ray or CT scan: A Radiologist will review the ED reading if any change in treatment is needed we will contact you. If you had a blood, urine, or wound culture: It will take several days for the results, if any change in treatment is needed we will contact you. If you had an STI test: It will take 48 hours for the results. Please call after 1 week if you have not heard back. Forms: [employer] (Welsh) - Clinical Impression Clinical Impression: Acute appendicitis - Scribe Statement The provider has reviewed the documentation as recorded by the Kenji Gilmore Do Provider Attestation: All medical record entries made by the Kenji were at my direction and personally dictated by me. I have reviewed the chart and agree that the record accurately reflects my personal performance of the history, physical exam, medical decision making, and the department course for this patient. I have also personally directed, reviewed, and agree with the discharge instructions and disposition.
[2018-09-02 10:12] LABS: BASO % 0.5 % (0.0-2.0); EOS % 0.1 % (0.0-4.0); LYMPH # 0.4 K/uL (1.0-4.3); LYMPH % 3.9 % (20.0-40.0); MEAN CELL VOLUME 90.8 fL (80.0-94.0); MEAN CORPUSCULAR HEMOGLOBIN 29.9 pg (27.0-31.0); MEAN PLATELET VOLUME 11.5 fL (7.2-11.7); MONO # 0.3 K/uL (0.0-0.8); MONO % 2.9 % (0.0-10.0); NEUT # 8.6 K/uL (1.8-7.0); NEUT % 92.6 % (50.0-75.0); PLATELET COUNT 149 K/uL (130-400); RBC 5.02 Mil/uL (4.40-5.90); RED CELL DISTRIBUTION WIDTH 13.6 % (11.5-14.5); WHITE BLOOD COUNT 9.3 K/uL (4.8-10.8)
[2018-09-02 10:18] LABS: SQUAMOUS EPITHIAL 1 /hpf (0-5); URINE BACTERIA RARE (<OCC); URINE BILIRUBIN NEGATIVE (NEGATIVE); URINE BLOOD NEGATIVE (NEGATIVE); URINE CLARITY Hazy (Clear); URINE COLOR Amber (YELLOW); URINE GLUCOSE (UA) NORMAL (Normal); URINE LEUKOCYTE ESTERASE NEG Leu/uL (Negative); URINE PROTEIN 1+ mg/dL (NEGATIVE); URINE UROBILINOGEN NORMAL mg/dL (0.2-1.0)
[2018-09-02 10:20] LABS: VENOUS BLOOD GAS BASE EXCESS 0.8 mmol/L (0.0-2.0); VENOUS BLOOD GAS PCO2 56 mmHg (40-60); VENOUS BLOOD GAS PO2 21 mm/Hg (30-55); VENOUS BLOOD PH 7.31 (7.32-7.43)
[2018-09-02 10:22] LABS: ALB/GLOB RATIO 1.7 (1.0-2.1); ALBUMIN 4.1 g/dL (3.5-5.0); ALT/SGPT 32 U/L (21-72); AST/SGOT 41 U/L (17-59); BLOOD UREA NITROGEN 32 mg/dL (9-20); CALCIUM 8.3 mg/dl (8.6-10.4); GFR NON-AFRICAN AMERICAN > 60; LIPASE 59 U/L (23-300)
[2018-09-02 10:43] LABS: BANDS 3 % (0-2); LYMPHOCYTE 4 % (20-40); MONOCYTE 2 % (0-10); NEUTROPHIL 91 % (50-75); TOTAL CELLS COUNTED 100
[2018-09-02] MEDS ORDERED: Iodixanol 320 MG/ML 100 ML BOTTLE IV ONE (10:43)
[2018-09-02 10:49] LABS: PLATELET ESTIMATE NORMAL (NORMAL)
--- NOTE | 2018-09-02 13:22 | CT ---
Date of service: 09/02/2018 PROCEDURE: CT Abdomen and Pelvis with contrast HISTORY: abd pain COMPARISON: 12/03/2017 TECHNIQUE: Contrast dose: 100 mL Visipaque 320 Radiation dose: Total exam DLP = 897.53 mGy-cm. This CT exam was performed using one or more of the following dose reduction techniques: Automated exposure control, adjustment of the mA and/or kV according to patient size, and/or use of iterative reconstruction technique. FINDINGS: LOWER THORAX: Very small hiatal hernia LIVER: Unremarkable. No gross lesion or ductal dilatation. GALLBLADDER AND BILE DUCTS: Status post cholecystectomy PANCREAS: Unremarkable. No gross lesion or ductal dilatation. SPLEEN: Unremarkable. ADRENALS: Unremarkable. No mass. KIDNEYS AND URETERS: Unremarkable. No hydronephrosis. No solid mass. VASCULATURE: Unremarkable. No aortic aneurysm. No aortic atherosclerotic calcification or mural plaque present. BOWEL: Multiple mildly dilated loops of small bowel, likely ileus. Cannot entirely rule out early mechanical small bowel obstruction. There is mild mural thickening of loops of jejunum in the central abdomen and left upper quadrant. Consistent with nonspecific enteritis.. APPENDIX: Distended fluid-filled appendix up to approximately 7 mm diameter. Concerning for acute appendicitis. No periappendiceal inflammatory change. No periappendiceal abscess. No free air. PERITONEUM: Unremarkable. No free fluid. No free air. LYMPH NODES: Unremarkable. No enlarged lymph nodes. BLADDER: Poorly distended. No gross abnormality. REPRODUCTIVE: Unremarkable prostate. BONES: No acute fracture. OTHER FINDINGS: None. IMPRESSION: Mildly distended appendix concerning for acute appendicitis. No periappendiceal abscess or free air. Probable mild ileus. Cannot rule out early mechanical small bowel obstruction and follow-up should be considered. Mild nonspecific enteritis.
--- NOTE | 2018-09-02 15:46 | CP.PCM.CON ---
History of Present Illness - History of Present Illness History of Present Illness: SURGERY NOTE FOR DR. GALARZA Reason: r/p appy, abdominal pain 73M presents to hospital for abdominal pain. Patient states pain is diffuse and is mainly in the lower abdominal. Patient states pain started recently. He denies nausea, vomiting, and denies diarrhea and constipation. Denies fevers. PSH: lap cholecystectomy Social: Denies alcohol, illicit drugs use Allergies: NKDA Past Patient History - Infectious Disease Hx of Infectious Diseases: None - Past Medical History & Family History Past Medical History?: Yes - Past Social History Smoking Status: Never Smoked - CARDIAC Hx Hypercholesterolemia: Yes Hx Hypertension: Yes - PULMONARY Hx Respiratory Disorders: No - NEUROLOGICAL Hx Neurological Disorder: No - HEENT Hx HEENT Problems: No - RENAL Hx Chronic Kidney Disease: No - ENDOCRINE/METABOLIC Hx Endocrine Disorders: No - HEMATOLOGICAL/ONCOLOGICAL Hx Blood Disorders: No - INTEGUMENTARY Hx Dermatological Problems: No - MUSCULOSKELETAL/RHEUMATOLOGICAL Hx Arthritis: Yes Hx Osteoporosis: Yes - GASTROINTESTINAL Hx Gall Bladder Disease: Yes Hx Gastritis: Yes - GENITOURINARY/GYNECOLOGICAL Hx Genitourinary Disorders: No - PSYCHIATRIC Hx Depression: Yes Hx Substance Use: No - SURGICAL HISTORY Hx Cholecystectomy: Yes - ANESTHESIA Hx Anesthesia: Yes Hx Anesthesia Reactions: No Hx Malignant Hyperthermia: No Meds Allergies/Adverse Reactions: Allergies Allergy/AdvReac Type Severity Reaction Status Date / Time No Known Allergies Allergy Verified 01/26/18 10:46 Physical Exam - Constitutional Appears: Non-toxic, No Acute Distress Additional comments: uncomfortable due to pain - Respiratory Exam Respiratory Exam: Clear to Auscultation Bilateral, NORMAL BREATHING PATTERN - Cardiovascular Exam Cardiovascular Exam: REGULAR RHYTHM, +S1, +S2 - GI/Abdominal Exam GI & Abdominal Exam: Soft, Tenderness. absent: Distended, Firm, Guarding, Rebound, Rigid - Extremities Exam Extremities exam: Negative for: pedal edema, tenderness - Neurological Exam Neurological exam: Alert, Oriented x3 - Psychiatric Exam Psychiatric exam: Normal Affect, Normal Mood - Skin Skin Exam: Dry, Intact, Normal Color, Warm Results - Vital Signs Recent Vital Signs: Last Vital Signs Temp 98.9 F 09/02/18 15:13 Pulse 96 H 09/02/18 15:13 Resp 18 09/02/18 15:13 BP 108/69 09/02/18 15:13 Pulse Ox 98 09/02/18 15:13 - Labs Result Diagrams: 09/02/18 10:01 09/02/18 10:01 Labs: Laboratory Results - last 24 hr 09/02/18 09/02/18 09/02/18 10:01 10:01 10:11 WBC 9.3 RBC 5.02 Hgb 15.0 Hct 45.6 MCV 90.8 MCH 29.9 MCHC 33.0 RDW 13.6 Plt Count 149 MPV 11.5 Neut % (Auto) 92.6 H Lymph % (Auto) 3.9 L [place] % (Auto) 2.9 Eos % (Auto) 0.1 Baso % (Auto) 0.5 Neut # (Auto) 8.6 H Lymph # (Auto) 0.4 L [place] # (Auto) 0.3 Eos # (Auto) 0.0 Baso # (Auto) 0.0 Neutrophils % (Manual) 91 H Band Neutrophils % 3 H Lymphocytes % (Manual) 4 L Monocytes % (Manual) 2 Platelet Estimate Normal RBC Morphology Normal pO2 21 L VBG pH 7.31 L VBG pCO2 56 VBG HCO3 23.7 VBG Total CO2 29.9 H VBG O2 Sat (Calc) 38.6 L VBG Base Excess 0.8 VBG Potassium 3.7 Glucose 88 Lactate 0.8 Sodium 135 140.0 Potassium 4.0 Chloride 101 104.0 Carbon Dioxide 27 Anion Gap 11 BUN 32 H Creatinine 0.7 L Est GFR ( Amer) > 60 Est GFR (Non-Af Amer) > 60 Random Glucose 96 Calcium 8.3 L Magnesium 1.8 Total Bilirubin 0.8 AST 41 ALT 32 Alkaline Phosphatase 73 Troponin I < 0.0120 Total Protein 6.4 Albumin 4.1 Globulin 2.4 Albumin/Globulin Ratio 1.7 Lipase 59 Venous Blood Potassium 3.7 Urine Color Urine Clarity Urine pH Ur Specific [place] Urine Protein Urine Glucose (UA) Urine Ketones Urine Blood Urine Nitrate Urine Bilirubin Urine Urobilinogen Ur Leukocyte Esterase Urine WBC (Auto) Urine RBC (Auto) Ur Squamous Epith Cells Urine Bacteria Hyaline Casts 09/02/18 10:11 WBC RBC Hgb Hct MCV MCH MCHC RDW Plt Count MPV Neut % (Auto) Lymph % (Auto) [place] % (Auto) Eos % (Auto) Baso % (Auto) Neut # (Auto) Lymph # (Auto) [place] # (Auto) Eos # (Auto) Baso # (Auto) Neutrophils % (Manual) Band Neutrophils % Lymphocytes % (Manual) Monocytes % (Manual) Platelet Estimate RBC Morphology pO2 VBG pH VBG pCO2 VBG HCO3 VBG Total CO2 VBG O2 Sat (Calc) VBG Base Excess VBG Potassium Glucose Lactate Sodium Potassium Chloride Carbon Dioxide Anion Gap BUN Creatinine Est GFR ( Amer) Est GFR (Non-Af Amer) Random Glucose Calcium Magnesium Total Bilirubin AST ALT Alkaline Phosphatase Troponin I Total Protein Albumin Globulin Albumin/Globulin Ratio Lipase Venous Blood Potassium Urine Color Radha Urine Clarity Hazy Urine pH 5.0 Ur Specific [place] 1.028 Urine Protein 1+ H Urine Glucose (UA) Normal Urine Ketones Trace Urine Blood Negative Urine Nitrate Negative Urine Bilirubin Negative Urine Urobilinogen Normal Ur Leukocyte Esterase Neg Urine WBC (Auto) 2 Urine RBC (Auto) 1 Ur Squamous Epith Cells 1 Urine Bacteria Rare Hyaline Casts 3-5 H Assessment & Plan - Assessment and Plan (Free Text) Assessment: 73M with enteritis, colitis Plan: - NPO - IVF - Pain control - Anti emetic - IV antibiotics - Serial abdominal exam Further recs discuss with Dr. Rick Kaba, PGY3
[2018-09-02] MEDS ORDERED: HYDROmorphone 1 mg/ml ISec IVP PRN (16:00)
[2018-09-02 16:31] VITALS: RESP 20
[2018-09-02] MEDS: Dextrose 5%/Lactated Ringer's 1,000 ML IV SCH (16:38)
[2018-09-02] MEDS: Piperacillin/Tazobact 3.375 GM in Sodium Chloride 100 ML IVPB SCH ×2 (17:24→21:33)
[2018-09-02] MEDS: metroNIDAZOLE IV 250mg/50 ml 250 MG/50 ML BAG IVPB SCH (18:27)
[2018-09-03] MEDS: Dextrose 5%/Lactated Ringer's 1,000 ML IV SCH ×2 (01:35→08:39)
[2018-09-03] MEDS: metroNIDAZOLE IV 250mg/50 ml 250 MG/50 ML BAG IVPB SCH ×2 (02:53→10:45)
[2018-09-03] MEDS: Piperacillin/Tazobact 3.375 GM in Sodium Chloride 100 ML IVPB SCH ×2 (04:38→10:46)
[2018-09-03 07:44] LABS: BASO % 0.6 % (0.0-2.0); EOS % 0.1 % (0.0-4.0); HEMOGLOBIN 15.3 g/dL (12.0-18.0); LYMPH # 0.8 K/uL (1.0-4.3); LYMPH % 17.8 % (20.0-40.0); MEAN CELL VOLUME 90.2 fL (80.0-94.0); MEAN CORPUSCULAR HEMOGLOBIN 30.2 pg (27.0-31.0); MEAN CORPUSCULAR HGB CONC 33.5 g/dL (33.0-37.0); MEAN PLATELET VOLUME 12.1 fL (7.2-11.7); MONO # 0.4 K/uL (0.0-0.8); MONO % 10.1 % (0.0-10.0); NEUT % 71.4 % (50.0-75.0); RBC 5.07 Mil/uL (4.40-5.90); RED CELL DISTRIBUTION WIDTH 13.7 % (11.5-14.5)
[2018-09-03 07:50] LABS: WHITE BLOOD COUNT 4.2 K/uL (4.8-10.8)
[2018-09-03 08:17] LABS: ALB/GLOB RATIO 1.6 (1.0-2.1); ALT/SGPT 53 U/L (21-72); AST/SGOT 57 U/L (17-59); BLOOD UREA NITROGEN 22 mg/dL (9-20); CALCIUM 8.5 mg/dl (8.6-10.4); GFR NON-AFRICAN AMERICAN > 60
[2018-09-03 09:52] VITALS: BP 112/72; PULSE 97; TEMP 98.5; O2SAT 96
--- NOTE | 2018-09-03 13:25 | CP.PCM.PN ---
Subjective - Date & Time of Evaluation Date of Evaluation: 09/03/18 Time of Evaluation: 13:24 - Subjective Subjective: PATIENT SEEN AND EXAMINED AT THE BEDSIDE Objective - Vital Signs/Intake and Output Vital Signs (last 24 hours): Temp Pulse Resp BP Pulse Ox 98.5 F 97 H 20 112/72 96 09/03/18 08:00 09/03/18 08:00 09/03/18 08:00 09/03/18 08:00 09/03/18 08:00 Intake and Output: 09/03/18 09/03/18 06:59 18:59 Intake Total 700 Balance 700 - Medications Medications: Current Medications Famotidine (Pepcid) 20 mg IVP DAILY [facility] Last Admin: 09/03/18 10:44 Dose: 20 mg Heparin Sodium (Porcine) (Heparin) 5,000 units SC Q12 [facility] Last Admin: 09/03/18 10:45 Dose: 5,000 units Hydromorphone HCl (Dilaudid) 1 mg IVP Q4H PRN PRN Reason: Pain, severe (8-10) Last Admin: 09/02/18 16:39 Dose: 1 mg Dextrose/Lactated Ringer's (Dextrose 5%/Lactated Ringer's) 1,000 mls @ 125 mls/hr IV .Q8H [facility] Last Admin: 09/03/18 08:39 Dose: Not Given Piperacillin Sod/Tazobactam (Sod 3.375 gm/ Sodium Chloride) 100 mls @ 200 mls/hr IVPB Q6H [facility]; Protocol Last Admin: 09/03/18 10:46 Dose: 200 mls/hr Metronidazole (Flagyl) 250 mg in 50 mls @ 100 mls/hr IVPB Q8H [facility]; Protocol Stop: 09/07/18 18:01 Last Admin: 09/03/18 10:45 Dose: 100 mls/hr Ondansetron HCl (Zofran Inj) 4 mg IVP Q6H PRN PRN Reason: Nausea/Vomiting Pneumococcal Polyvalent Vaccine (Pneumovax 23 Vaccine) 0.5 ml IM .ONCE ONE Stop: 09/04/18 10:01 - Labs Labs: 09/03/18 07:23 09/03/18 07:23 Assessment and Plan - Assessment and Plan (Free Text) Assessment: FOLLOW UP WITH DR CORTES IN HIS OFFICE CONTINUE HOME MEDICATION ACTIVITY TOLERATED CALL DR CORTES OR GO TO THE EMERGENCY ROOM IF SYMPTOM RETURN OR WORSENING
[2018-09-03] MEDS ORDERED: Pneumococcal 23-Valent Vaccine IM ONE (15:44)
[2018-09-04] MEDS ORDERED: Pneumococcal 23-Valent Vaccine IM ONE (10:00)
--- NOTE | 2018-09-05 08:00 | HP ---
HISTORY OF PRESENT ILLNESS: A 73-year-old male, admitted to the hospital with chief complaint of abdominal pain PHYSICAL EXAMINATION: GENERAL: The patient is awake, alert, oriented. VITAL SIGNS: Temperature 98, pulse 90. HEENT: Within normal limits. NECK: Supple. CHEST: Symmetrical. HEART: Regular. ABDOMEN: Soft. EXTREMITIES: No edema. IMPRESSION: The patient suffered from abdominal pain. The patient to get bed rest, supportive care. Aditi Gillis MD
--- NOTE | 2018-09-05 13:01 | CARD ---
APPROVED REPORT Date of service: 09/02/2018 EKG Measurement Heart [id number] <Conclusion> Sinus rhythm with premature atrial complexes Septal infarct, age undetermined T wave abnormality, consider lateral ischemia Abnormal ECG
== END 2018-09-03 16:29 | disposition home or self-care (01) | DRG 392 ==
LOC: C.ER 08:41 → C.9E 14:45 → C.3T 15:08
PROVIDERS: ADMIT Internal Medicine Pulmonary Disease; ATTEND Internal Medicine Pulmonary Disease
DX: K52.9 Noninfective gastroenteritis and colitis, unspecified (principal); I10 Essential (primary) hypertension; E78.5 Hyperlipidemia, unspecified; E78.00 Pure hypercholesterolemia, unspecified; M81.0 Age-related osteoporosis without current pathological fracture; Z90.49 Acquired absence of other specified parts of digestive tract